=== PATIENT | female | born 1980 | race Hispanic/Latino ===

== ENCOUNTER 2018-12-17 19:45 | Emergency (ER) | payer BC, OTHER ==
[2018-12-17 20:13] LABS: APPEARANCE,URINE Cloudy (CLEAR); BILIRUBIN,URINE Negative (NEGATIVE); COLOR,URINE Yellow (YELLOW); GLUCOSE, URINE (UA) Negative (NEGATIVE); KETONES,URINE >=160 mg/dL (NEGATIVE); LEUKOCYTE ESTERASE ,URINE Trace (NEGATIVE); NITRATE,URINE Negative (NEGATIVE); OCCULT BLOOD,URINE Large (NEGATIVE); PROTEIN,URINE Negative (NEGATIVE)
[2018-12-17 20:16] LABS: HCG,QUAL RESULT NEGATIVE (NEGATIVE)
[2018-12-17] MEDS ORDERED: ONDANSETRON HCL 4 MG/2 ML VIAL ONE (20:18)
[2018-12-17] MEDS ORDERED: FAMOTIDINE/PF 20 MG/2 ML VIAL IV ONE (20:19)
[2018-12-17 20:21] LABS: BASOPHILS % (AUTO) 0.4 % (0.0-5.0); HEMATOCRIT 42.4 % (36-48); LYMPHOCYTES % (AUTO) 11.9 % (21.0-51.0); MEAN CORPUSCULAR HEMOGLOBIN 30.9 pg (27.0-33.0); MEAN CORPUSCULAR HGB CONC 34.8 g/dL (32.0-36.0); MEAN CORPUSCULAR VOLUME 88.7 fL (79-99); MONOCYTES % (AUTO) 10.3 % (3.0-13.0); NEUTROPHILS % (AUTO) 77.4 % (40.0-77.0); PLATELET COUNT (AUTO) 311 K/uL (130-400); RED BLOOD CELL COUNT(AUTO) 4.78 MIL/uL (4.00-5.50); RED CELL DISTRIBUTION WIDTH 12.8 % (11.0-15.5); WHITE BLOOD COUNT (AUTO) 9.1 K/uL (4.8-10.8)
[2018-12-17 20:23] LABS: BACTERIA,URINE Few /HPF (None Seen)
[2018-12-17 20:24] LABS: SQUAMOUS EPITHELIAL CELL,UR Few /HPF (0-2)
[2018-12-17] MEDS ORDERED: 0.9% SODIUM CHLORIDE 1000 ML IV BAG IV ONE (20:26)
[2018-12-17 20:29] LABS: CREATININE 0.9 mg/dL (0.5-1.5); POTASSIUM 3.6 mmol/L (3.5-5.1)
[2018-12-17 20:34] LABS: ALBUMIN 3.7 g/dL (3.5-5.0); BILIRUBIN,DIRECT 0.1 mg/dL (0.0-0.3); BILIRUBIN,TOTAL 0.4 mg/dL (0.2-1.0); TOTAL PROTEIN, SERUM 7.5 g/dL (6.0-8.3)
[2018-12-17] MEDS ORDERED: DiphenhydrAMINE HCL 50 MG/ML VIAL ONE (21:33)
[2018-12-17] MEDS ORDERED: KETOROLAC TROMETHAMINE 30MG/ML ONE (21:33)
[2018-12-17] MEDS ORDERED: METOCLOPRAMIDE 10 MG/2 ML VIAL ONE (21:33)
== END 2018-12-17 22:36 | disposition home or self-care (01) ==
LOC: EDH 19:45
DX: K29.00 Acute gastritis without bleeding (principal); G43.909 Migraine, unspecified, not intractable, without status migrainosus; Z90.49 Acquired absence of other specified parts of digestive tract
CPT/HCPCS: 36415; 76705; 80048; 80076; 81001; 81025; 82150; 83690; 85025; 86677; 96361; 96374; 96375; 99285; J1200; J1885; J2405; J2765; J3490; J7030

== ENCOUNTER 2019-06-25 11:35 | Observation (INO) | payer BC ==
[2019-06-25] VITALS (17 sets, daily range): BP systolic 98–126; BP diastolic 60–79
[~2019-06-25] VITALS: Ht 162.6 cm; Wt 76.0 kg
[2019-06-25 12:11] LABS: APPEARANCE,URINE Clear (CLEAR); BILIRUBIN,URINE Negative (NEGATIVE); COLOR,URINE Yellow (YELLOW); GLUCOSE, URINE (UA) Negative (NEGATIVE); KETONES,URINE 40 mg/dL (NEGATIVE); LEUKOCYTE ESTERASE ,URINE Small (NEGATIVE); NITRATE,URINE Negative (NEGATIVE); OCCULT BLOOD,URINE Trace (NEGATIVE); PH,URINE 5.5 (5.0-8.0); PROTEIN,URINE Negative (NEGATIVE); UROBILINOGEN,URINE 0.2 mg/dL (0.2-1.0)
[2019-06-25 12:13] LABS: HCG,QUAL RESULT NEGATIVE (NEGATIVE)
[2019-06-25 12:21] LABS: BACTERIA,URINE Rare /HPF (None Seen); RBC,URINE 0-1 /HPF (0-1); SQUAMOUS EPITHELIAL CELL,UR Rare /HPF (0-2)
[2019-06-25 12:43] LABS: BASOPHILS % (AUTO) 0.7 % (0.0-5.0); EOSINOPHILS % (AUTO) 0.2 % (0.0-8.0); HEMATOCRIT 40.9 % (36-48); LYMPHOCYTES % (AUTO) 27.8 % (21.0-51.0); MEAN CORPUSCULAR HEMOGLOBIN 30.9 pg (27.0-33.0); MEAN CORPUSCULAR HGB CONC 34.4 g/dL (32.0-36.0); MEAN CORPUSCULAR VOLUME 89.8 fL (79-99); NEUTROPHILS % (AUTO) 64.3 % (40.0-77.0); PLATELET COUNT (AUTO) 364 K/uL (130-400); RED BLOOD CELL COUNT(AUTO) 4.56 MIL/uL (4.00-5.50); RED CELL DISTRIBUTION WIDTH 12.7 % (11.0-15.5); WHITE BLOOD COUNT (AUTO) 9.2 K/uL (4.8-10.8)
[2019-06-25 13:02] LABS: CREATININE 0.9 mg/dL (0.5-1.5); POTASSIUM 3.6 mmol/L (3.5-5.1)
[2019-06-25 13:06] LABS: ALBUMIN 4.4 g/dL (3.5-5.0); BILIRUBIN,TOTAL 0.5 mg/dL (0.2-1.0); TOTAL PROTEIN, SERUM 8.1 g/dL (6.0-8.3)
[2019-06-25] MEDS ORDERED: ONDANSETRON HCL 4 MG/2 ML VIAL ONE (13:22)
[2019-06-25] MEDS ORDERED: MORPHINE SULFATE 2 MG/ML 1ML SYG ONE (13:22)
[2019-06-25] MEDS ORDERED: CEFAZOLIN SODIUM 1 GM VIAL IVP SCH (13:30)
[2019-06-25] MEDS ORDERED: LIDOCAINE PF 2% 5ML ABBOJECT ONE (13:55)
[2019-06-25] MEDS ORDERED: FENTANYL CITRATE PF 50 MCG/1 ML 2ML VIAL ONE ×3 (13:55→16:55)
[2019-06-25] MEDS ORDERED: SUCCINYLCHOLINE 200MG/10ML SYR ONE (13:55)
[2019-06-25] MEDS ORDERED: ROCURONIUM 10MG/1ML SYR 10 MG/ML ML ONE (13:56)
[2019-06-25] MEDS ORDERED: MIDAZOLAM HCL 1 MG/ML 2ML VIAL ONE ×2 (13:56→14:43)
[2019-06-25] MEDS ORDERED: PROPOFOL 10 MG/ML 20ML VIAL IV ONE (13:56)
[2019-06-25] MEDS ORDERED: LACTATED RINGERS 1000ML 1,000 ML IV ONE (14:10)
[2019-06-25] MEDS ORDERED: OCTYL 2-CYANOACRYLATE 1 EACH TP ONE (14:15)
[2019-06-25] MEDS ORDERED: BUPIVACAINE/PF 0.25% 30ML VIAL IJ ONE (14:15)
[2019-06-25] MEDS ORDERED: GLYCOPYRROLATE 1 MG/5 ML SYRINGE ONE (15:58)
[2019-06-25] MEDS ORDERED: NEOSTIGMINE 5MG/5ML SYR IV ONE (15:59)
[2019-06-25] MEDS ORDERED: KETOROLAC TROMETHAMINE 30MG/ML ONE (16:01)
[2019-06-25] MEDS ORDERED: MEPERIDINE-PF 25 MG/ML SYG ONE ×2 (16:22→16:34)
[2019-06-25] MEDS ORDERED: IBUPROFEN 800 MG TAB ONE (18:46)
[2019-06-25] MEDS ORDERED: IBUPROFEN 800 MG TAB PO SCH (19:45)
--- NOTE | 2019-06-25 19:50 | NUR ---
pt is dismissed, brought to private car by Nakia Kraft via wheelchair accompanied by spouse. pt is in stable condition. Discharge instructions were given by Sandro
== END 2019-06-25 19:50 | disposition home or self-care (01) ==
LOC: EDH 11:35 → EDHIP 13:10 → WSH 17:35
PROVIDERS: ADMIT Obstetrics & Gynecology; ATTEND Obstetrics & Gynecology
DX: N83.8 Other noninflammatory disorders of ovary, fallopian tube and broad ligament (principal); G40.909 Epilepsy, unspecified, not intractable, without status epilepticus; Z87.42 Personal history of other diseases of the female genital tract
CPT/HCPCS: 36415; 58661; 74176; 80053; 81001; 81025; 82150; 83690; 85025; 86850; 86900; 86901; 99283; A4215; A4221; A4222; A4223; A4351; A4649 ×4; A4663; C1769 ×2; G0168; G0378 ×5; J0330; J0690; J1885; J2001; J2175 ×2; J2250 ×2; J2405; J2704; J2710; J3010 ×3; J3490 ×2; J7030; J7120 ×2

== ENCOUNTER 2019-08-15 07:44 | Emergency (ER) | payer BC ==
[2019-08-15 08:15] LABS: APPEARANCE,URINE Clear (CLEAR); BILIRUBIN,URINE Negative (NEGATIVE); COLOR,URINE Yellow (YELLOW); GLUCOSE, URINE (UA) Negative (NEGATIVE); KETONES,URINE Negative (NEGATIVE); LEUKOCYTE ESTERASE ,URINE Small (NEGATIVE); NITRATE,URINE Negative (NEGATIVE); OCCULT BLOOD,URINE Negative (NEGATIVE); PH,URINE 5.5 (5.0-8.0); PROTEIN,URINE Negative (NEGATIVE); UROBILINOGEN,URINE 0.2 mg/dL (0.2-1.0)
[2019-08-15 08:19] LABS: HCG,QUAL RESULT NEGATIVE (NEGATIVE)
[2019-08-15 08:23] LABS: MUCUS,URINE Rare LPF (None Seen); SQUAMOUS EPITHELIAL CELL,UR Few /HPF (0-2)
[2019-08-15 08:24] LABS: BACTERIA,URINE Rare /HPF (None Seen); RBC,URINE None Seen /HPF (0-1)
[2019-08-15 08:31] LABS: CREATININE 0.8 mg/dL (0.5-1.5); POTASSIUM 3.9 mmol/L (3.5-5.1)
[2019-08-15 08:36] LABS: ALBUMIN 3.7 g/dL (3.5-5.0); BILIRUBIN,TOTAL 0.4 mg/dL (0.2-1.0); TOTAL PROTEIN, SERUM 7.1 g/dL (6.0-8.3)
[2019-08-15 08:47] LABS: EOSINOPHILS % (AUTO) 1.7 % (0.0-8.0); HEMATOCRIT 39.8 % (36-48); LYMPHOCYTES % (AUTO) 33.4 % (21.0-51.0); MEAN CORPUSCULAR HEMOGLOBIN 30.3 pg (27.0-33.0); MEAN CORPUSCULAR HGB CONC 33.4 g/dL (32.0-36.0); MEAN CORPUSCULAR VOLUME 90.7 fL (79-99); MONOCYTES % (AUTO) 9.9 % (3.0-13.0); NUCLEATED RED BLOOD CELLS 0.1 % (0.0-0.19); PLATELET COUNT (AUTO) 369 K/uL (130-400); RED BLOOD CELL COUNT(AUTO) 4.39 MIL/uL (4.00-5.50); RED CELL DISTRIBUTION WIDTH 12.7 % (11.0-15.5)
[2019-08-15] MEDS ORDERED: CEFTRIAXONE SODIUM 500 MG VIAL ONE (10:07)
[2019-08-15] MEDS ORDERED: DOXYCYCLINE HYCLATE 100 MG TABLET PO ONE (10:07)
[2019-08-15] MEDS ORDERED: PHENAZOPYRIDINE HCL 200 MG TABLET ONE (10:08)
[2019-08-15] MEDS ORDERED: AZITHROMYCIN 250 MG TABLET PO ONE (10:08)
[2019-08-15] MEDS ORDERED: NAPROXEN 500 MG TABLET ONE (10:08)
[2019-08-15] MEDS ORDERED: LIDOCAINE HCL-MPF 1% 2ML VIAL ONE (10:09)
== END 2019-08-15 10:32 | disposition home or self-care (01) ==
LOC: EDH 07:44
DX: N39.0 Urinary tract infection, site not specified (principal); N76.0 Acute vaginitis; G43.909 Migraine, unspecified, not intractable, without status migrainosus; Z98.51 Tubal ligation status; Z90.49 Acquired absence of other specified parts of digestive tract
CPT/HCPCS: 36415; 76856; 80053; 81001; 81025; 85025; 87088; 87210; 87486; 87797; 96372; 99285; J0696; J3490

== ENCOUNTER 2021-02-06 10:15 | Emergency (ER) | payer BC, OTHER ==
[2021-02-06] MEDS ORDERED: ORPHENADRINE CITRATE 30 MG/ML ML ONE (12:28)
[2021-02-06] MEDS ORDERED: KETOROLAC TROMETHAMINE 30MG/ML ONE (12:28)
== END 2021-02-06 13:35 | disposition home or self-care (01) ==
LOC: EDH 10:15
DX: M54.5 Low back pain (principal); G43.909 Migraine, unspecified, not intractable, without status migrainosus; Z90.49 Acquired absence of other specified parts of digestive tract; Z98.51 Tubal ligation status; V49.09XA Driver injured in collision with other motor vehicles in nontraffic accident, initial encounter; Y93.89 Activity, other specified; Y92.89 Other specified places as the place of occurrence of the external cause; Y99.8 Other external cause status
CPT/HCPCS: 96372 ×2; 99284; J1885; J2360

== ENCOUNTER 2023-12-14 20:02 | Emergency (ER) | payer BC ==
[~2023-12-14] VITALS: Ht 167.6 cm; Wt 68.0 kg
[2023-12-14] MEDS: LIDOCAINE HCL 1% 20 ML VIAL INJ SCH (21:00)
[2023-12-14] MEDS: IBUPROFEN 800 MG TAB PO ONE (21:13)
[2023-12-14] MEDS: TETANUS/DIPHTHERIA TOXOID [ADULT] 0.5 ML VIAL IM ONE (21:15)
[2023-12-14] MEDS ORDERED: BACITRACIN 1 EACH PACKET TP ONE ×2 (22:09→23:15)
[2023-12-14] MEDS ORDERED: CEPH500B PO (22:13)
[2023-12-14 23:11] VITALS: BP 122/68; PULSE 75; RESP 20; O2SAT 99
== END 2023-12-14 23:30 | disposition home or self-care (01) ==
LOC: EDH 20:02
DX: S81.812A Laceration without foreign body, left lower leg, initial encounter (principal); Z90.49 Acquired absence of other specified parts of digestive tract; W25.XXXA Contact with sharp glass, initial encounter; Y93.E9 Activity, other interior property and clothing maintenance; Y92.89 Other specified places as the place of occurrence of the external cause; Y99.8 Other external cause status
CPT/HCPCS: 12002; 73590; 90471; 90714; 96372